=== PATIENT | female | born 1995 | race Caucasian/White ===

== ENCOUNTER 2021-11-22 01:33 | Inpatient (IN) ==
[2021-11-22] MEDS ORDERED: SODIUM CHLORIDE 0.9% 1000ML 1,000 ML IV STA (01:47)
--- NOTE | 2021-11-22 01:50 | Emergency Department Note ---
Impression & Plan Acute cholecystitis ADMIT ED Provider Note HPI: The patient is an otherwise healthy 25-year-old female who presents to the emergency department with a chief complaint of epigastric pain that is been ongoing for about the past 4 to 5 hours. Patient describes the pain as "cramping" over the epigastrium. She denies any vomiting. On arrival to the ED the patient is hemodynamically stable, she is in no acute distress on my initial assessment. ROS: -GI: Epigastric pain *10 point review systems was conducted and is otherwise negative unless stated above *Outpatient medications and allergy history reviewed PE: General: Alert, NAD HEENT: Normocephalic, atraumatic Eyes: Extraocular eye movement is intact, no scleral erythema Pulmonary: Clear to auscultation bilaterally, no wheezing Cardio: Regular rate and rhythm GI: Abdomen is soft, moderate tenderness over the epigastrium and right upper quadrant without guarding or rigidity : No suprapubic tenderness MSK: No evidence of trauma or malformation of the extremities, no edema Skin: No evidence of rash Neuro: Alert, no focal deficits Psychiatric: Cooperative potline monitor: - An order was placed for continuous cardiac monitoring - Patient was noted to be in sinus rhythm with rate of 70 US RUQ: Cholelithiasis with mild gallbladder wall thickening. Findings can be seen with cholecystitis. Consider HIDA imaging if there is further concern. Incidental note made of polyp at the fundus. No measurements obtained. Consider follow-up imaging as measurements dictate treatment guidelines. Radiologist: Juma Guaman MD CT ABDOMEN & PELVIS With Contrast: Mild gallbladder wall thickening with suggestion of pericholecystic fluid. Findings may be due to cholecystitis. Small dependent calculus noted at the f undus. Consider HIDA imaging. Normal appendix. Small hiatal hernia. IUD within the uterus. No evidence of bowel obstruction. Radiologist: Juma Guaman MD Medical Decision Making: Patient presented to the emergency department the chief complaint of epigastric pain. She does have some tenderness over the epigastrium in the right upper quadrant. Given this, IV was established, lab work obtained, ultrasound imaging of the right upper quadrant shows evidence of gallbladder wall thickening, concerning for acute cholecystitis. CT imaging of the abdomen pelvis shows evidence of mild gallbladder wall thickening with pericholecystic fluid. Also concerning for acute cholecystitis. Patient does not have any transaminitis, bilirubin is within normal limits. She declined pain medication. I discussed the above findings with on-call general surgery, Dr. Espinoza, he did evaluate the patient at the bedside and placed admission orders. The patient will be admitted to his service for further management. On my reassessment she is resting comfortably in bed, she is in agreement to the above plan. Diagnosis: 1. Acute cholecystitis 2. Epigastric pain, acute Disposition: Admission Akash Fletcher DO Emergency Medicine Past Med/Surg History Social History Smoking Status: Never smoker Preferred Language: Hebrew Feels Safe at Home: Yes Allergies Allergies Allergy/AdvReac Type Severity Reaction Status Date / Time No Known Allergies Allergy Verified 11/22/21 02:05 Home Meds Home Medications Medication Instructions Recorded Confirmed escitalopram oxalate 20 mg tablet 20 mg PO DAILY 11/22/21 11/22/21 (Lexapro) sumatriptan succinate 25 mg tablet 0 mg PO .COMPLEX PRN 11/22/21 11/22/21 (Imitrex) topiramate 100 mg tablet 100 mg PO DAILY 11/22/21 11/22/21 Results & Data (ED) Vital Signs Vital Signs - 24 hr 11/22/21 01:37 11/22/21 02:25 11/22/21 02:31 Temperature 36.5 C Temperature Source Temporal Artery Scan Pulse Rate 78 Pulse Rate [Finger] 74 Respiratory Rate 18 Respiratory Effort / Characteristics Non-Labored Spontaneous Respiratory Depth Normal Blood Pressure 122/79 Blood Pressure [Right Arm] 122/73 Blood Pressure Mean 93 Blood Pressure Mean [Right Arm] 89 Pulse Oximetry 98 98 97 Oxygen Delivery Method Room Air Room Air Room Air Sepsis Recent Fever Within 48 Hours No Sepsis New/Unexplained Change in Mental Status N/A Sepsis Action Taken by Nursing No Action Required 11/22/21 04:44 11/22/21 06:07 Temperature Temperature Source Pulse Rate Pulse Rate [Finger] 75 71 Respiratory Rate 16 Respiratory Effort / Characteristics Non-Labored Spontaneous Non-Labored Spontaneous Respiratory Depth Blood Pressure Blood Pressure [Right Arm] 112/66 110/66 Blood Pressure Mean Blood Pressure Mean [Right Arm] 81 80 Pulse Oximetry 96 97 Oxygen Delivery Method Room Air Room Air Sepsis Recent Fever Within 48 Hours Sepsis New/Unexplained Change in Mental Status Sepsis Action Taken by Nursing Laboratory Data Result diagrams: 11/22/21 02:25 11/22/21 02:25 Lab Results 11/22/21 11/22/21 11/22/21 Range/Units 01:44 01:44 02:25 WBC 14.32 H (4.8-10.8) K/uL RBC 4.25 (4.2-5.4) M/uL Hgb 13.3 (12.0-16.0) g/dL Hct 38.6 (37-47) % MCV 90.8 (80-100) fL MCH 31.3 (25-34) pg MCHC 34.5 (32-36) g/dL RDW Std Deviation 42.2 (36.4-46.3) fL RDW Coeff of [place] 12.7 (11.5-14.5) % Plt Count 373 (130-400) K/uL MPV 9.8 (7.4-10.4) fL Immature Gran % (Auto) 0.1 % Neut % (Auto) 85.4 % Lymph % (Auto) 9.9 % [place] % (Auto) 4.1 % Eos % (Auto) 0.4 % Baso % (Auto) 0.1 % Neut # (Auto) 12.21 H (1.4-6.5) K/uL Lymph # (Auto) 1.42 (1.2-3.4) K/uL [place] # (Auto) 0.59 (0.11-0.59) K/uL Eos # (Auto) 0.06 (0-0.5) K/uL Baso # (Auto) 0.02 (0-0.2) K/uL Immature Gran # (Auto) 0.02 (0.00-0.02) K/uL RBC Morphology Unremarkable PT (9.0-12.0) Seconds INR (0.9-1.1) Sodium (136-145) mmol/L Potassium (3.5-5.1) mmol/L Chloride (98-107) mmol/L Carbon Dioxide (21-32) mmol/L Anion Gap (3-11) BUN (6-23) mg/dl Creatinine (0.6-1.2) mg/dl Est Cr Clr Drug Dosing ml/min Est GFR ( Amer) ml/min Est GFR (Non-Af Amer) ml/min BUN/Creatinine Ratio (10-20) Glucose (70-99(Fasting)) mg/dl Calcium (8.5-10.1) mg/dl Total Bilirubin (0.2-1.0) mg/dl AST (13-39) U/L ALT (7-52) U/L Alkaline Phosphatase (34-104) U/L Total Protein (6.0-8.3) gm/dl Albumin (3.4-5.0) gm/dl Globulin (2.5-4.0) gm/dl Albumin/Globulin Ratio (0.9-2) Lipase (11-82) U/L HCG, Qual (Negative) Urine Color Yellow Urine Appearance Clear (Clear) Urine pH 6.0 (4.5-7.5) Ur Specific [place] 1.028 (1.000-1.030) Urine Protein Negative (Negative) Urine Glucose (UA) Negative (Negative) Urine Ketones Negative (Negative) Urine Blood Negative (Negative) Urine Nitrite Negative (Negative) Urine Bilirubin Negative (Negative) Urine Urobilinogen Negative (Negative) Ur Leukocyte Esterase Negative (Negative) POC Ur Test NEG (NEG) 11/22/21 11/22/21 11/22/21 Range/Units 02:25 02:25 02:25 WBC (4.8-10.8) K/uL RBC (4.2-5.4) M/uL Hgb (12.0-16.0) g/dL Hct (37-47) % MCV (80-100) fL MCH (25-34) pg MCHC (32-36) g/dL RDW Std Deviation (36.4-46.3) fL RDW Coeff of [place] (11.5-14.5) % Plt Count (130-400) K/uL MPV (7.4-10.4) fL Immature Gran % (Auto) % Neut % (Auto) % Lymph % (Auto) % [place] % (Auto) % Eos % (Auto) % Baso % (Auto) % Neut # (Auto) (1.4-6.5) K/uL Lymph # (Auto) (1.2-3.4) K/uL [place] # (Auto) (0.11-0.59) K/uL Eos # (Auto) (0-0.5) K/uL Baso # (Auto) (0-0.2) K/uL Immature Gran # (Auto) (0.00-0.02) K/uL RBC Morphology PT 10.8 (9.0-12.0) Seconds INR 1.0 (0.9-1.1) Sodium 140 (136-145) mmol/L Potassium 3.8 (3.5-5.1) mmol/L Chloride 110 H (98-107) mmol/L Carbon Dioxide 21 (21-32) mmol/L Anion Gap 9 (3-11) BUN 15 (6-23) mg/dl Creatinine 0.67 (0.6-1.2) mg/dl Est Cr Clr Drug Dosing 120.2 ml/min Est GFR ( Amer) 140.6 ml/min Est GFR (Non-Af Amer) 121.3 ml/min BUN/Creatinine Ratio 22.4 H (10-20) Glucose 131 H (70-99(Fasting)) mg/dl Calcium 9.5 (8.5-10.1) mg/dl Total Bilirubin 0.4 (0.2-1.0) mg/dl AST 14 (13-39) U/L ALT 11 (7-52) U/L Alkaline Phosphatase 44 (34-104) U/L Total Protein 7.4 (6.0-8.3) gm/dl Albumin 4.6 (3.4-5.0) gm/dl Globulin 2.8 (2.5-4.0) gm/dl Albumin/Globulin Ratio 1.6 (0.9-2) Lipase 30 (11-82) U/L HCG, Qual Negative (Negative) Urine Color Urine Appearance (Clear) Urine pH (4.5-7.5) Ur Specific [place] (1.000-1.030) Urine Protein (Negative) Urine Glucose (UA) (Negative) Urine Ketones (Negative) Urine Blood (Negative) Urine Nitrite (Negative) Urine Bilirubin (Negative) Urine Urobilinogen (Negative) Ur Leukocyte Esterase (Negative) POC Ur Test (NEG) Administered Medications Discontinued Medications Sodium Chloride (Nss 1000ml) 1,000 mls @ 999 mls/hr IV .Q1H1M STA Stop: 11/22/21 02:47 Last Infusion: 11/22/21 03:27 Dose: 0 mls/hr Documented by: [id number] Admin: 11/22/21 02:28 Dose: 999 mls/hr Documented by: [id number] Ioversol (Optiray 320 100ml) 100 ml IV ONCE ONE Stop: 11/22/21 04:45 Last Admin: 11/22/21 04:45 Dose: 93 ml Documented by: [id number] Discharge Plan Visit Data Chief Complaint: Abdominal Pain Stated Complaint: STOMACH PAIN ED Provider: Akash Fletcher Discharge Problem: Acute cholecystitis Forms Stand Alone Forms: [facility] Prescriptions Prescriptions: No Action sumatriptan succinate [Imitrex] 25 mg Tablet 0 mg PO .COMPLEX PRN (Reason: Migraine Headache) RF: 0 topiramate 100 mg Tablet 100 mg PO DAILY RF: 0 escitalopram oxalate [Lexapro] 20 mg Tablet 20 mg PO DAILY RF: 0 Referrals Referrals: PCP,NO [Physician] -
[2021-11-22 02:00] LABS: Appearance Urine Clear (Clear); Bilirubin Urine Negative (Negative); Blood Urine Negative (Negative); Color Urine Yellow; Glucose Urine UA Negative (Negative); Ketones Urine Negative (Negative); Leukocyte Esterase Urine Negative (Negative); Nitrite Urine Negative (Negative); Protein Urine Negative (Negative); Specific Gravity Urine 1.028 (1.000-1.030); Urobilinogen Urine Negative (Negative)
[2021-11-22 02:43] LABS: Hematocrit (blood only) 38.6 % (37-47); Hemoglobin 13.3 g/dL (12.0-16.0); Mean Corpuscular Hemoglobin 31.3 pg (25-34); Mean Corpuscular Hgb Conc 34.5 g/dL (32-36); Mean Corpuscular Volume 90.8 fL (80-100); Mean Platelet Volume 9.8 fL (7.4-10.4); Platelet Count 373 K/uL (130-400); RDW Coefficient of Variation 12.7 % (11.5-14.5); RDW Standard Deviation 42.2 fL (36.4-46.3); Red Blood Count 4.25 M/uL (4.2-5.4); White Blood Count 14.32 K/uL (4.8-10.8)
[2021-11-22 03:04] LABS: Pregnancy Test, Serum Negative (Negative)
[2021-11-22 03:06] LABS: Prothrombin Time 10.8 Seconds (9.0-12.0)
[2021-11-22 03:12] LABS: Basophils # (auto) 0.02 K/uL (0-0.2); Basophils % (auto) 0.1 %; Eosinophils # (auto) 0.06 K/uL (0-0.5); Eosinophils % (auto) 0.4 %; Immature Granulocytes # (auto) 0.02 K/uL (0.00-0.02); Immature Granulocytes % (auto) 0.1 %; Lymphocytes # (auto) 1.42 K/uL (1.2-3.4); Lymphocytes % (auto) 9.9 %; Monocytes # (auto) 0.59 K/uL (0.11-0.59); Monocytes % (auto) 4.1 %; Neutrophils # (auto) 12.21 K/uL (1.4-6.5); Neutrophils % (auto) 85.4 %; RBC Morphology Unremarkable
[2021-11-22 04:20] LABS: Albumin Globulin Ratio 1.6 (0.9-2); Albumin Level 4.6 gm/dl (3.4-5.0); BUN Creatinine Ratio 22.4 (10-20); Bilirubin,Total 0.4 mg/dl (0.2-1.0); Calcium 9.5 mg/dl (8.5-10.1); Creatinine Clr Calc Pharmacy 120.2 ml/min; Est GFR (African American) 140.6 ml/min; Est GFR (Non-African American) 121.3 ml/min; Globulin 2.8 gm/dl (2.5-4.0); Potassium 3.8 mmol/L (3.5-5.1); Total Protein 7.4 gm/dl (6.0-8.3)
[2021-11-22] MEDS ORDERED: OPTIRAY 320 100ml IV ONE (04:44)
--- NOTE | 2021-11-22 06:53 | Surgery Consultation ---
Date of Consultation November 22, 2021 Assessment & Plan (1) Acute cholecystitis due to biliary calculus: pt is a 25 year-old female who presents to ER with 12 hours history RUQ pain, Plan, admit to hospital, order HIDA scan, NPO, IV fluid, control pain, IV antibiotic, repeat labs in morning, when we do laparoscopic cholecystectomy depend on HIDA scan finding, pt agrees with the plan, I answered all questions, History of Present Illness Reason for Consultation: acute cholecystitis History of Present Illness CC: RUQ pain HPI: pt is a 25 year-old female who presents to ER with 12 hours history RUQ pain, pt started to have RUQ pain after she ate chicken salad, the pain is 7/10, the pain is not radiate to back, pt had some nausea, no vomiting, pt denies fever, no diarrhea, pt had U/S and CT scan diagnosis- acute cholecystitis with gallstone, otherwise pt is healthy, Allergies Allergy/AdvReac Type Severity Reaction Status Date / Time No Known Allergies Allergy Verified 11/22/21 02:05 Home Medications Medication Instructions Recorded Confirmed Type escitalopram oxalate 20 mg tablet 20 mg PO DAILY 11/22/21 11/22/21 History (Lexapro) sumatriptan succinate 25 mg tablet 0 mg PO .COMPLEX PRN 11/22/21 11/22/21 History (Imitrex) topiramate 100 mg tablet 100 mg PO DAILY 11/22/21 11/22/21 History Patient History Social History Smoking Status: Never smoker Preferred Language: Trinidadian Feels Safe at Home: Yes Review of Systems Constitutional: as per Subjective / HPI Eyes: as per Subjective / HPI Respiratory: as per Subjective / HPI Cardiovascular: as per Subjective / HPI Gastrointestinal: as per Subjective / HPI Genitourinary: as per Subjective / HPI Integumentary: as per Subjective / HPI Neurologic: as per Subjective / HPI Psychiatric: as per Subjective / HPI Endocrine: as per Subjective / HPI Hematologic / Lymphatic: as per Subjective / HPI Physical Exam Constitutional: WD/WN, vitals as above no distress Eyes: PERRL, conjunctivae normal, anicteric sclerae Neck: trachea midline, no thyromegaly Respiratory: normal respiratory effort, lungs clear to auscultation Cardiovascular: RRR, no murmur, no edema Gastrointestinal (Abdomen): soft, mild tenderness at RUQ, no rebound pain, no distend, BS + Musculoskeletal: no cyanosis or clubbing, extremities motor strength 5/5 Neurologic: patellar DTR's 2+ bilat, sensation intact Psychiatric: A+Ox3, euthymic affect Results & Data ([facility]) Vital Signs (Past 12 Hours) Vital Signs Temp Pulse Pulse Resp BP BP Pulse Ox 11/22/21 06:07 71 16 110/66 97 11/22/21 04:44 75 112/66 96 11/22/21 02:31 74 122/73 97 11/22/21 02:25 98 11/22/21 01:37 36.5 C 78 18 122/79 98 Laboratory Results Abnormal lab results 11/22/21 11/22/21 Range/Units 02:25 02:25 WBC 14.32 H (4.8-10.8) K/uL Neut # (Auto) 12.21 H (1.4-6.5) K/uL Chloride 110 H (98-107) mmol/L BUN/Creatinine Ratio 22.4 H (10-20) Glucose 131 H (70-99(Fasting)) mg/dl Diagnostic Findings U/S, and CT scan - acute cholecystitis, gallstone, recommend to do HIDA scan,
--- NOTE | 2021-11-22 08:11 | Ultrasound Report ---
US gallbladder CLINICAL HISTORY: Epigastric pain. COMPARISON STUDY: No previous studies for comparison. FINDINGS: The liver is sonographically normal. There is no biliary ductal dilatation. Common bile rand t measures 2 mm in caliber. The gallbladder is mildly distended. The gallbladder wall is mildly thick ened and edematous. Sonographic Kim sign could not be assessed for in this patient. Sludge within the gallbladder is noted. A few nonmobile echogenic foci adherent to the gallbladder wall are present . Pancreatic body is normal. Head and tail are partially obscured. There is no right hydronephrosis. IMPRESSION: Distended gallbladder with mildly thickened, edematous gallbladder wall. Sludge within th e gallbladder and possible small calculi. These findings favor acute cholecystitis. A hepatobiliary c ould be obtained. ACT 112: Negative or not required by law. Electronically signed by: Mendez Pratt M.D. 11/22/2021 8:10 AM
--- NOTE | 2021-11-22 08:13 | CT Scan Report ---
CT abd pelvis IV con only CLINICAL HISTORY: Epigastric pain TECHNIQUE: Helical axial images of the abdomen and pelvis were obtained and displayed. Automated dose lowering techniques and/or adjustment according to patient size were utilized for this exam. This e xam was performed with intravenous contrast. COMPARISON: None available at the time of this dictation. FINDINGS: Lower chest: No acute abnormality Liver: Unremarkable. No focal lesions are seen. Gallbladder and biliary tree: The gallbladder wall thickening is seen measuring 4 mm with surrounding pericholecystic fluid. A small calculus is noted in the fundus. Nonspecific linear density is seen i n the gallbladder neck. No intra- or extrahepatic biliary ductal dilation. Pancreas: Unremarkable, no focal lesions. Spleen: Unremarkable. Adrenals: Unremarkable. Kidneys and ureters: Unremarkable. Bladder: Limited evaluation due to underdistention. Reproductive organs: Intrauterine device is noted. Bowel: Unremarkable. Lymph nodes Retroperitoneal: Unremarkable. Mesenteric: Unremarkable. Pelvic: Unremarkable. Peritoneum: Normal. Vessels: Unremarkable. Abdominal wall: Unremarkable. Bones: Unremarkable. IMPRESSION: Gallbladder wall thickening and pericholecystic fluid compatible with cholecystitis. ACT 112: Negative or not required by law. Electronically signed by: Allen Wise M.D. 11/22/2021 8:11 AM
[2021-11-22] MEDS ORDERED: HYDROmorphone INJ 0.5 MG/0.5 ML SYR IV PRN (12:20)
[2021-11-22] MEDS ORDERED: PIPERACILL/TAZOBAC CONSULT ACTIVE PRN (12:20)
[2021-11-22] MEDS ORDERED: SUMAtriptan succinate 25 MG TAB PO PRN (12:20)
[2021-11-22] MEDS: LACTATED RINGER'S 1,000 ML IV SCH (12:43)
[2021-11-22] MEDS ORDERED: PIPERACILLIN/TAZOBACTAM 3.375 GM in DEXTROSE 5% 100 ML IV ONE (13:30)
--- NOTE | 2021-11-22 14:41 | Nuclear Medicine Report ---
NUCLEAR MEDICINE HEPATOBILIARY SCAN CLINICAL HISTORY: Abdominal pain. Possible cholecystitis. COMPARISON: Right upper quadrant ultrasound and CT of the abdomen and pelvis performed earlier today . TECHNIQUE: 5.3 mCi of technetium 99m Choletec IV was injected at 1:45 PM on November 22, 2021. Immediat janine following injection, imaging of the abdomen was carried out for 60 minutes in the anterior projec tion. FINDINGS: Hepatic uptake of radiotracer is prompt and homogeneous. Activity is identified within the gallbladder and common bile duct at 15 minutes. Small bowel activity is noted at 20 minutes. IMPRESSION: No evidence for acute cholecystitis. ACT 112: Negative or not required by law. Electronically signed by: Mendez Pratt M.D. 11/22/2021 2:39 PM
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
[2021-11-22] MEDS ORDERED: ONDANSETRON INJ 2 MG/ML 2 ML VIAL IV PRN (15:40)
[2021-11-22] MEDS: TOPIRAMATE 100 MG TAB PO SCH (15:46)
[2021-11-22] MEDS: ESCITALOPRAM OXALATE 20 MG TAB PO SCH (15:46)
--- NOTE | 2021-11-22 17:10 | Surgery Progress Note ---
Date of Service November 22, 2021 Assessment & Plan (1) Acute cholecystitis due to biliary calculus: Plan: pt is a 25 year-old female who presents to ER with 12 hours history RUQ pain, Plan, admit to hospital, order HIDA scan, NPO, IV fluid, control pain, IV antibiotic, repeat labs in morning, when we do laparoscopic cholecystectomy depend on HIDA scan finding, pt agrees with the plan, I answered all questions, 11/22/2021 5:11PM Dr. Espinoza, base pt is still have acute cholecystitis symptoms, I recommend to do laparoscopic cholecystectomy, possible open or cholangiogram tomorrow, D/w benefits, risks and alternatives of the surgery, the risk s- infection,bleeding, injury other organs, incisional hernia, may need ERCP, pt understood, she agrees with surgery, she signed informed consent, I answrered all questions, Admission and Anticipated Discharge Date Admission Date: November 22, 2021 Subjective F/U HIDA scan- reviewed the report with pt, pt is still have RUQ pain, no fever, pt wants too have cholecystectomy done, Review of Systems Constitutional: as per Subjective / HPI Eyes: as per Subjective / HPI Respiratory: as per Subjective / HPI Cardiovascular: as per Subjective / HPI Gastrointestinal: as per Subjective / HPI Genitourinary: as per Subjective / HPI Integumentary: as per Subjective / HPI Neurologic: as per Subjective / HPI Psychiatric: as per Subjective / HPI Endocrine: as per Subjective / HPI Hematologic / Lymphatic: as per Subjective / HPI Physical Exam Constitutional: WD/WN, vitals as above Eyes: PERRL, conjunctivae normal, anicteric sclerae Neck: trachea midline, no thyromegaly Respiratory: normal respiratory effort, lungs clear to auscultation Cardiovascular: RRR, no murmur, no edema Gastrointestinal (Abdomen): mild tenderness at RUQ, no rebound pain, no distend, BS + Musculoskeletal: no cyanosis or clubbing, extremities motor strength 5/5 Neurologic: patellar DTR's 2+ bilat, sensation intact Psychiatric: A+Ox3, euthymic affect Results & Data ([facility]) Vital Signs (Past 12 Hours) Vital Signs Temp Pulse Pulse Resp BP BP Pulse Ox 11/22/21 14:20 36.8 C 71 16 124/76 97 11/22/21 13:33 36.8 C 78 20 113/72 98 11/22/21 13:00 64 19 111/63 98 11/22/21 12:48 69 16 98 11/22/21 12:00 36.9 C 84 20 118/72 99 11/22/21 09:08 76 20 116/70 98 11/22/21 07:33 36.8 C 88 20 118/76 98 11/22/21 06:07 71 16 110/66 97 Laboratory Results Abnormal lab results 11/22/21 11/22/21 Range/Units 02:25 02:25 WBC 14.32 H (4.8-10.8) K/uL Neut # (Auto) 12.21 H (1.4-6.5) K/uL Chloride 110 H (98-107) mmol/L BUN/Creatinine Ratio 22.4 H (10-20) Glucose 131 H (70-99(Fasting)) mg/dl Diagnostic Findings NUCLEAR MEDICINE HEPATOBILIARY SCAN CLINICAL HISTORY: Abdominal pain. Possible cholecystitis. COMPARISON: Right upper quadrant ultrasound and CT of the abdomen and pelvis performed earlier today. TECHNIQUE: 5.3 mCi of technetium 99m Choletec IV was injected at 1:45 PM on November 22, 2021. Immediately following injection, imaging of the abdomen was carried out for 60 minutes in the anterior projection. FINDINGS: Hepatic uptake of radiotracer is prompt and homogeneous. Activity is identified within the gallbladder and common bile duct at 15 minutes. Small bowel activity is noted at 20 minutes. IMPRESSION: No evidence for acute cholecystitis.
[2021-11-22] MEDS: PIPERACILLIN/TAZOBACTAM 3.375 GM in DEXTROSE 5% 100 ML IV SCH (17:31)
[2021-11-23] MEDS: LACTATED RINGER'S 1,000 ML IV SCH ×3 (00:40→17:29)
[2021-11-23] MEDS: PIPERACILLIN/TAZOBACTAM 3.375 GM in DEXTROSE 5% 100 ML IV SCH ×3 (02:01→17:29)
[2021-11-23 05:50] LABS: Basophils # (auto) 0.02 K/uL (0-0.2); Basophils % (auto) 0.3 %; Eosinophils # (auto) 0.25 K/uL (0-0.5); Eosinophils % (auto) 3.8 %; Hematocrit (blood only) 38.2 % (37-47); Hemoglobin 12.8 g/dL (12.0-16.0); Immature Granulocytes # (auto) 0.01 K/uL (0.00-0.02); Immature Granulocytes % (auto) 0.2 %; Lymphocytes # (auto) 3.18 K/uL (1.2-3.4); Lymphocytes % (auto) 47.9 %; Mean Corpuscular Hemoglobin 30.8 pg (25-34); Mean Corpuscular Hgb Conc 33.5 g/dL (32-36); Mean Corpuscular Volume 91.8 fL (80-100); Monocytes # (auto) 0.55 K/uL (0.11-0.59); Monocytes % (auto) 8.3 %; Neutrophils # (auto) 2.63 K/uL (1.4-6.5); Neutrophils % (auto) 39.5 %; Platelet Count 336 K/uL (130-400); RDW Coefficient of Variation 12.8 % (11.5-14.5); RDW Standard Deviation 43.2 fL (36.4-46.3); Red Blood Count 4.16 M/uL (4.2-5.4); White Blood Count 6.64 K/uL (4.8-10.8)
[2021-11-23 06:18] LABS: Albumin Globulin Ratio 1.8 (0.9-2); Albumin Level 3.9 gm/dl (3.4-5.0); BUN Creatinine Ratio 14.9 (10-20); Bilirubin,Total 0.7 mg/dl (0.2-1.0); Creatinine Clr Calc Pharmacy 92.6 ml/min; Est GFR (African American) 106.6 ml/min; Est GFR (Non-African American) 91.9 ml/min; Globulin 2.2 gm/dl (2.5-4.0); Potassium 3.8 mmol/L (3.5-5.1); Total Protein 6.1 gm/dl (6.0-8.3)
[2021-11-23] MEDS: TOPIRAMATE 100 MG TAB PO SCH (08:11)
[2021-11-23] MEDS: ESCITALOPRAM OXALATE 20 MG TAB PO SCH (08:11)
[2021-11-23] MEDS ORDERED: ACETAMINOPHEN 325 MG TAB PO PRN (11:47)
--- NOTE | 2021-11-23 12:44 | History & Physical Bridge Note ---
Date of Service November 23, 2021 History & Physical Bridge Note I have examined the patient, reviewed the History & Physical and in the interval since the performance of the History & Physical I have noted the following changes of clinical significance: no changes noted
[2021-11-23] MEDS ORDERED: HYDROmorphone INJ 1 MG/ML SYRINGE IV PRN (13:09)
[2021-11-23] MEDS ORDERED: LABETALOL HCL IV 5 MG/ML 20ML IV PRN (13:09)
[2021-11-23] MEDS ORDERED: NALOXONE HCL 0.4 MG/1 ML VIAL/CARP IV PRN (13:09)
[2021-11-23] MEDS ORDERED: ePHEDrine sulfate 50 MG/ML AMP IV PRN (13:09)
[2021-11-23] MEDS ORDERED: ONDANSETRON INJ 2 MG/ML 2 ML VIAL IV PRN (13:09)
[2021-11-23] MEDS ORDERED: fentaNYL citrate 100 MCG/2 ML VIAL IV PRN (13:09)
[2021-11-23] MEDS ORDERED: ATROPINE SULFATE 0.1 MG/ML 10ML SYR IV PRN (13:09)
[2021-11-23] MEDS ORDERED: PROMETHAZINE HCL 12.5 MG in SODIUM CHLORIDE 0.9% 50 ML IV PRN (13:09)
[2021-11-23] MEDS ORDERED: FLUMAZENIL 0.1 MG/1 ML 10 ML VIAL IV PRN (13:09)
[2021-11-23] MEDS ORDERED: BUPIVACAINE 0.5 % 5 MG/1 ML MPF 30ML VIAL ONE (13:16)
[2021-11-23] MEDS ORDERED: LIDOCAINE 1% LOCAL 20 ML VIAL ONE (13:16)
[2021-11-23] MEDS ORDERED: BACITRACIN OINT 15 GM TUBE ONE (13:16)
--- NOTE | 2021-11-23 14:42 | Post Operative Brief Note ---
Immediate Post Op Note v1 Date of Surgery November 23, 2021 Pre & Post Diagnosis Operation Date: 11/23/21 12:55 Pre-Op Diagnosis: Acute cholecystitis due to biliary calculus Post-Op Diagnosis: Acute cholecystitis due to biliary calculus I identified the patient and participated in the time-out.: Yes Procedure Operation Date: 11/23/21 12:55 Actual Procedures p Laparoscopic Cholecystectomy(Not Applicable) - Catalino Espinoza MD Surgeon Catalino Espinoza MD Irrigation District Manager surgical corsetier Estimated Blood Loss 10 Findings Consistent with Post-Op Diagnosis Fluids 900ml Specimens gallbladder Anesthesia Type General Complications none Disposition Accompanied Patient To Recovery: Yes
--- NOTE | 2021-11-23 15:22 | Operative Report (OR) ---
DATE OF PROCEDURE: 11/23/2021. PREOPERATIVE DIAGNOSES: Acute cholecystitis, cholelithiasis. POSTOPERATIVE DIAGNOSES: Acute cholecystitis, cholelithiasis. OPERATION: Laparoscopic cholecystectomy. SURGEON: Catalino Espinoza MD. ANESTHESIA: General. ESTIMATED BLOOD LOSS: About 10 mL. FINDINGS: Acute cholecystitis. COMPLICATIONS: None. INDICATIONS FOR THE PROCEDURE: This is a 25-year-old female who was admitted to the hospital for acu te cholecystitis, cholelithiasis and I recommended to do a laparoscopic cholecystectomy, possible ope n, possible cholangiogram. I did talk to the patient about the benefit, risk, alternate procedure. I indicated the risks may include, but not limited to, such as bleeding, infection, injury to other o rgans, incisional hernia, may need ERCP. The patient understands. She signed informed consent and I answered all questions. DETAILS OF PROCEDURE: After we identified the patient and verified the procedure, we brought the pat ient to the OR, put the patient in the supine position on the OR table. The patient received SCD on bilateral legs to prevent DVT. Also, patient received 3.375 grams Zosyn IV for prophylactic antibiot ic. The patient received general anesthesia without difficulty. The abdomen was prepped and draped in routine sterile fashion. After timeout, I injected the local anesthesia by using 1% lidocaine mix ed with 0.5% Marcaine just above the umbilicus, then I made a small incision just above umbilicus, op ened fascia, opened peritoneum. Under direct vision, put a Ghazala trocar in, connected to CO2 to cre ate pneumoperitoneum, flow rate at 6 liters per minute, pressure not more than 14 mmHg. Once we got a nice pneumoperitoneum, we put a camera in, looked around the abdomen, showed normal fin ding on the liver; however, the gallbladder showed significant gallbladder wall thickening, edema, co nfirmed diagnosis of acute cholecystitis. Once confirmed the diagnosis, we put another two 5 mm troc ars on the right upper quadrant and 11 mm trocar on the epigastric area. Once all trocars in, we use d the grasper to hold the base of gallbladder, put in the direction to the diaphragm, another grasper to hold the pouch of gallbladder, put a lateral to expose triangle of Calot. The cystic duct was id entified and mobilized. I put two 10 mm metal clips on the proximal cystic duct, one on the distal c ystic duct. I then used a scissor for transection of cystic duct; rechecked, no bile leak. The cyst ic artery was identified and mobilized. I put two 10 mm metal clips on the proximal cystic artery, o ne on the distal cystic artery, then used a scissor for transection of cystic artery, rechecked, and no active bleeding. Then, we used the Bovie to take down gallbladder from liver bed; rechecked, no a ctive bleeding, no bile leak from liver bed. Then, we removed gallbladder through the catch bag. Then, we reinserted the Ghazala trocar in, connected to CO2 to create pneumoperitoneum, again looked a round the abdomen, no active bleeding, no bile leak from liver bed. Then, we removed all trocars und er direct vision. No active bleeding from the trocar site. Pneumoperitoneum was released, then I cl osed the umbilical incision fascial layer by using 0 Vicryl rcuddh-jw-erold x2, closed subcutaneous l george by using 2-0 Vicryl interruptedly, closed skin by using 4-0 Vicryl continuous running, closed th e epigastric incision fascial layer by using 0 Vicryl rydwry-py-ejncm x2, closed subcutaneous layer b y using 2-0 Vicryl interruptedly, closed skin by using 4-0 Vicryl interruptedly, closed another two 5 mm trocar site of skin only by using 4-0 Vicryl. Then, we put the dressing on. The patient tolerat ed the procedure well. All instrument, needle, sponge counts were correct x2 at the end of the case. The patient was transferred to recovery room in stable condition. The specimen was sent to pathonofre zamora. After the procedure, I did talk to the patient and patient's about the OR finding and th e procedure we did, they understand. Job ID: [id number]
--- NOTE | 2021-11-23 15:32 | Anesthesiology Progress Note ---
Date of Service November 23, 2021 Anesthesia Post Procedure Vital Signs Vital Signs: Temp Pulse Pulse Resp BP Pulse Ox 11/23/21 15:20 76 16 110/67 96 11/23/21 15:10 80 16 105/73 97 11/23/21 15:00 73 16 111/71 98 11/23/21 14:51 37.1 C 88 10 L 114/71 98 11/23/21 12:27 37.1 C 76 18 106/64 98 11/22/21 22:38 36.6 C 70 16 113/77 96 Pain Intensity Bilateral Upper Abdomen: Pain Intensity: 7 Abdomen: Pain Intensity: 5 Transfer of Care Handoff Completed per policy Notes Mental Status: alert / awake / arousable Patient Amnestic to Procedure: Yes Nausea / Vomiting: adequately controlled Pain: adequately controlled Airway Patency, RR, SpO2: stable & adequate BP & HR: stable & adequate Hydration State: stable & adequate Anesthetic Complications: no major complications apparent
[2021-11-23] MEDS: oxyCODONE/ACETAMINOPHEN 5mg/325mg TAB PO PRN (20:43)
[2021-11-24] MEDS: PIPERACILLIN/TAZOBACTAM 3.375 GM in DEXTROSE 5% 100 ML IV SCH ×2 (01:44→09:15)
[2021-11-24] MEDS: LACTATED RINGER'S 1,000 ML IV SCH (06:34)
[2021-11-24] MEDS: oxyCODONE/ACETAMINOPHEN 5mg/325mg TAB PO PRN ×2 (06:36→10:38)
[2021-11-24 07:47] LABS: Basophils # (auto) 0.01 K/uL (0-0.2); Basophils % (auto) 0.1 %; Eosinophils # (auto) 0.08 K/uL (0-0.5); Eosinophils % (auto) 0.6 %; Hematocrit (blood only) 37.5 % (37-47); Hemoglobin 12.3 g/dL (12.0-16.0); Immature Granulocytes # (auto) 0.05 K/uL (0.00-0.02); Immature Granulocytes % (auto) 0.4 %; Lymphocytes # (auto) 2.51 K/uL (1.2-3.4); Lymphocytes % (auto) 18.7 %; Mean Corpuscular Hemoglobin 30.4 pg (25-34); Mean Corpuscular Hgb Conc 32.8 g/dL (32-36); Mean Corpuscular Volume 92.6 fL (80-100); Monocytes % (auto) 10.4 %; Neutrophils # (auto) 9.38 K/uL (1.4-6.5); Neutrophils % (auto) 69.8 %; Platelet Count 356 K/uL (130-400); RDW Coefficient of Variation 12.7 % (11.5-14.5); RDW Standard Deviation 43.3 fL (36.4-46.3); Red Blood Count 4.05 M/uL (4.2-5.4); White Blood Count 13.43 K/uL (4.8-10.8)
[2021-11-24 08:12] LABS: Albumin Globulin Ratio 1.5 (0.9-2); Albumin Level 3.9 gm/dl (3.4-5.0); Bilirubin,Total 0.7 mg/dl (0.2-1.0); Creatinine Clr Calc Pharmacy 107.4 ml/min; Est GFR (African American) 127.5 ml/min; Globulin 2.6 gm/dl (2.5-4.0); Potassium 3.4 mmol/L (3.5-5.1); Total Protein 6.5 gm/dl (6.0-8.3)
[2021-11-24] MEDS: TOPIRAMATE 100 MG TAB PO SCH (09:12)
[2021-11-24] MEDS: ESCITALOPRAM OXALATE 20 MG TAB PO SCH (09:12)
--- NOTE | 2021-11-24 12:14 | Discharge Summary ---
Date of Service November 24, 2021 Admission HPI Per Admitting Provider pt is a 25 year-old female who presents to ER with 12 hours history RUQ pain, pt started to have RUQ pain after she ate chicken salad, the pain is 7/10, the pain is not radiate to back, pt had some nausea, no vomiting, pt denies fever, no diarrhea, pt had U/S and CT scan diagnosis- acute cholecystitis with gallstone, otherwise pt is healthy, Principal Diagnosis Acute calculus cholecystitis Discharge Exam Constitutional WD/WN, vitals as above no acute distress and not ill appearing Neck normal visual inspection and trachea midline Respiratory normal respiratory effort; no respiratory distress and no labored breathing Gastrointestinal (Abdomen) Inspection/Auscultation: abdomen normal to inspection; abdomen not distended Percussion/Palpation: + abdomen tender (With surgical incisions appropriate postop) and abdomen soft; no guarding and abdomen not rigid Skin no rashes, warm and dry Psychiatric A+Ox3, euthymic affect Discharge Data Allergies Allergy/AdvReac Type Severity Reaction Status Date / Time No Known Allergies Allergy Verified 11/22/21 12:18 Consultations 11/22/21 05:54 Consult General Surgery Stat 11/22/21 07:09 ED Decision to Admit Stat Procedures Performed Operation Date: 11/23/21 12:55 Actual Procedures p Laparoscopic Cholecystectomy(Not Applicable) - Catalino Espinoza MD Ordered Studies 11/22/21 01:47 CT abd pelvis IV con only Urgent US gallbladder Urgent Hospital Course (1) Acute cholecystitis due to biliary calculus: Patient was admitted to the hospital to the medical/surgical floor from the emergency department and started on IV fluids, IV antibiotics, IV pain management as needed, IV Zofran as needed for nausea. A HIDA scan was ordered for further evaluation. HIDA scan showed no cystic duct obstruction no evidence of acute cholecystitis. Her diet was advanced to low fiber diet and then she was n.p.o. after midnight. She was scheduled for laparoscopic cholecystectomy on 11/23/2021. Patient tolerated procedure well and was transferred back to medical/surgical floor for postoperative care. Her diet was advanced to clear liquids. IV pain management as needed and IV antiemetics were continued as needed. IV Zosyn was continued. Patient was evaluated on postop day #1. Afebrile, vital signs stable, pain moderate but controlled, no nausea, tolerating clear liquids. Labs showed leukocytosis of 13,000 however this is likely postop as she is afebrile. Patient was discharged home on postop day #1 in stable condition Total Time Total Time Spent Total Time Spent (In Minutes): 30 minutes Total Time Includes: Examination of the Patient, Discharge Planning and Medication Reconciliation Discharge Plan Discharge Items Patient Disposition: Home - Self-Care Reason For Visit: VOMITING LOWER ABDOMINAL PAIN Discharge Diagnosis: Acute Cholecystitis Activity: Per Instructions section Non-emergency contact: Surgeon Call non-emergency contact if: you have any medication questions, your pain is not controlled, your pain is worsening, you have a fever, your temperature is above 101, your wound has increased redness, your wound has increased drainage and your wound pain has increased Follow-up/Referrals: Catalino Espinoza MD [Physician] - (Per Dr Franky Dowd office will call patient to schedule a follow up appt.) Laurie Bianchi PA-C [Primary Care Provider] - Diet: Regular Addtl Attending Provider Instructions: Post-Surgical ~Discharge Instructions Activity Recommendations: - lifting limitation: (25 pounds for 4 weeks), - exercise/sex/sports limit: (nonstrenuous for 2 weeks), - driving or machine use limit: (none for 1 week, or until pain free and no longer taking narcotic pain medication), - Shower/bathe limit: (may shower beginning Saturday Diet: - Resume previous diet SPECIAL CARE INSTRUCTIONS: - May shower on Saturday. Sponge bath and was hair in meantime. On Saturday, remove outer dressings and shower. Let water run over area and pat dry. - Leave steri strips on for one week and then remove. - Do not submerge incisions underwater for 2 weeks - Call the surgeon's office with any questions or concerns - - (ex. temperature higher than 101 degrees F, excessive bleeding or pain). MEDICATIONS: - Resume previous medications unless instructed otherwise by your surgeon. - May alternate extra strength Tylenol and Ibuprofen as needed for mild to moderate pain -650 mg Tylenol every 6 hours as needed - Ibuprofen 600 mg every 6 hours as needed , take with food - Percocet 1 every 6 hours, as needed for moderate to severe pain - Recommend daily stool softener (Colace) while taking narcotic pain medication to prevent constipation or straining. FOLLOW UP VISIT: - If not already scheduled, please call the office to schedule a two week follow-up appointment. Office number Pending Studies at Discharge: Yes (gallbladder pathology, will be reviewed at follow-up visit) Stand-Alone Forms: My [facility], Work/School Release, Smoking Cessation Medications and DC Order Prescriptions: New oxycodone-acetaminophen 5-325 mg tablet 1 tab PO Q6H PRN (Reason: pain) Qty: 12 RF: 0 Continued sumatriptan succinate [Imitrex] 25 mg Tablet 0 mg PO .COMPLEX PRN (Reason: Migraine Headache) RF: 0 topiramate 100 mg Tablet 50 mg PO BID RF: 0 escitalopram oxalate [Lexapro] 20 mg Tablet 20 mg PO QPM RF: 0 Discharge Orders: Discharge Order (Routine); Ordered 11/24/21 Ordered By: Valerie Cruz Admission Data Admit Date/Time: 11/22/21 06:58 Attending Provider: Catalino Espinoza Admit Provider: Catalino Espinoza Primary Care Provider: Laurie Bianchi Other Providers: Catalino Espinoza
== END 2021-11-24 12:46 | disposition home or self-care (01) | DRG 419 ==
LOC: ED 01:33 → EDINP 06:58 → 3N 14:39
DX: K80.00 Calculus of gallbladder with acute cholecystitis without obstruction